=== PATIENT | male | born 1950 | race Caucasian/White ===

== ENCOUNTER 2019-06-03 13:51 | Outpatient (CLI) | payer MEDICARE ==
[2019-06-03] MEDS ORDERED: GADOTERATE 10 MMOL/20 ML SYR ONE (16:33)
== END 2019-06-03 23:59 | disposition home or self-care (01) ==
LOC: RAD 13:51
PROVIDERS: ATTEND Psychiatry & Neurology Neurology
DX: S06.5X9A Traumatic subdural hemorrhage with loss of consciousness of unspecified duration, initial encounter (principal); H46.9 Unspecified optic neuritis; R22.0 Localized swelling, mass and lump, head; X58.XXXA Exposure to other specified factors, initial encounter; Y93.89 Activity, other specified; Y92.89 Other specified places as the place of occurrence of the external cause; Y99.8 Other external cause status
CPT/HCPCS: 70543; 93880; A9575